=== PATIENT | female | born 1940 | race Caucasian/White ===

== ENCOUNTER → 2016-05-18 | Outpatient (CLI) | payer OTHER ==
--- NOTE | 2016-05-18 10:28 | DX ---
Esophagram History: Dysphagia. Comparison: None available. Technique: Double contrast esophagram is performed with thin and thick barium. Findings: Swallowing is grossly normal with symmetric appearance of the valleculae and piriform sinus es. Prominent cricopharyngeus is noted. Esophageal motility and distensibility are normal. Minimal mu cosal irregularity is suspected in the esophagus. Felinization of the esophagus is noted. There is no hiatal hernia. No reflux is identified. The patient declined the 13 mm barium tablet. 2.6 minutes of fluoroscopy were utilized. Dose= 34.9 mGy. Impression: 1. Prominent cricopharyngeus. 2. Minimal mucosal irregularity, which can be seen with esophagitis. 3. Felinization of the esophagus, commonly associated with reflux, although no reflux was identified during intermittent fluoroscopic observation.
== END ==
LOC: FIMAGING 08:24
PROVIDERS: ATTEND Internal Medicine Gastroenterology
DX: R13.12 Dysphagia, oropharyngeal phase (principal); K22.8 Other specified diseases of esophagus

== ENCOUNTER → 2016-06-19 | Outpatient (CLI) | payer OTHER | LOC: BMCIMAGING 09:31 | PROVIDERS: ATTEND Podiatrist Foot & Ankle Surgery | DX: M21.42 Flat foot [pes planus] (acquired), left foot (principal); M77.9 Enthesopathy, unspecified ==

== ENCOUNTER → 2016-06-22 | Outpatient (CLI) | payer OTHER | LOC: FIMAGING 09:44 | DX: Z12.31 Encounter for screening mammogram for malignant neoplasm of breast (principal) | CPT/HCPCS: G0202 ==

== ENCOUNTER → 2016-10-14 | Outpatient (CLI) | payer OTHER | LOC: FIMAGING 08:42 | PROVIDERS: ATTEND Internal Medicine Endocrinology, Diabetes & Metabolism | DX: Z13.820 Encounter for screening for osteoporosis (principal); M85.80 Other specified disorders of bone density and structure, unspecified site ==

== ENCOUNTER → 2017-06-23 | Outpatient (CLI) | payer OTHER, MEDICARE | LOC: FIMAGING 09:11 | PROVIDERS: ATTEND Internal Medicine | DX: Z12.31 Encounter for screening mammogram for malignant neoplasm of breast (principal) ==

== ENCOUNTER → 2018-06-24 | Outpatient (CLI) | payer OTHER, MEDICARE | LOC: BHLMT 10:00 | PROVIDERS: ATTEND Internal Medicine Cardiovascular Disease | DX: R01.1 Cardiac murmur, unspecified (principal); I10 Essential (primary) hypertension | CPT/HCPCS: 93306-PO ==

== ENCOUNTER → 2018-06-27 | Outpatient (CLI) | payer OTHER, MEDICARE | LOC: FIMAGING 10:26 | PROVIDERS: ATTEND Internal Medicine | DX: Z12.31 Encounter for screening mammogram for malignant neoplasm of breast (principal) ==